=== PATIENT | male | born 1960 | race Caucasian/White ===

== ENCOUNTER 2016-11-12 17:21 | Emergency (ER) | payer OTHER ==
[2016-11-12 17:41] VITALS: BP 129/79; PULSE 75; TEMP 98; BMI 25.8
--- NOTE | 2016-11-12 18:47 | PDOC ---
History of Present Illness - General Chief Complaint: Eye Problem Stated Complaint: FOREIGN OBJECT Time Seen by Provider: 11/12/16 17:43 History Source: Patient, Family - History of Present Illness Timing/Duration: 1-3 hours Severity: mild Past History - Past Medical History Allergies/Adverse Reactions: Allergies Allergy/AdvReac Type Severity Reaction Status Date / Time Penicillins Allergy Verified 11/12/16 17:38 Home Medications: Ambulatory Orders Naproxen [Naprosyn] 375 mg PO BID PRN #14 tablet 01/10/12 No Home Medications 0 dose .ROUTE UTDICT 01/10/12 Erythromycin 0.5% Eye Ointment [Erythromycin 0.5% Eye Ointment -] 1 applic OD DAILY #1 tube 11/12/16 Other medical history: NONE - Psycho/Social/Smoking Cessation Hx Anxiety: No Suicidal Ideation: No Smoking Status: No Smoking History: Never smoked Have you smoked in the past 12 months: No Number of Cigarettes Smoked Daily: 0 Information on smoking cessation initiated: No Hx Alcohol Use: No Drug/Substance Use Hx: No Substance Use Type: None Review of Systems - Review of Systems HEENTM: Yes: Eye Pain. No: Blurred Vision, Tearing *Physical Exam - Vital Signs Last Vital Signs Temp Pulse Resp BP Pulse Ox 98.0 F 75 15 129/79 100 11/12/16 17:39 11/12/16 17:39 11/12/16 17:39 11/12/16 17:39 11/12/16 17:39 - Physical Exam General Appearance: Yes: Appropriately Dressed. No: Apparent Distress HEENT: positive: Normal Voice, Other (R conjunctival erythema, tearing or gross fb on lid eversion). negative: Scleral Icterus (R), Scleral Icterus (L) Neck: positive: Supple Respiratory/Chest: negative: Respiratory Distress Integumentary: positive: Dry, Warm Neurologic: positive: Fully Oriented, Alert, Normal Mood/Affect Medical Decision Making - Medical Decision Making 11/12/16 18:44 56-year-old male, no significant history, here with foreign body sensation to right eye. Patient states while changing a light fixture on ceiling at home today, fixture fell shattering glass and suspects piece of glass might have gone into eye. States he had bilateral eye discomfort and has irrigated her eyes since. States left eye feels better, but continues to have some discomfort to right eye. Denies conjunctival erythema, tearing, photophobia or visual changes. See exam Corneal abrasion s/p injury ?small uptake to R eye No gross fb on lid eversion Tetanus UTD -dc w/ abx ointment and optho f/u 11/12/16 18:49 *DC/Admit/Observation/Transfer Diagnosis at time of Disposition: Corneal abrasion Qualifiers: Encounter type: initial encounter Laterality: right Qualified Code(s): S05.01XA - Injury of conjunctiva and corneal abrasion without foreign body, right eye, initial encounter - Discharge Dispostion Disposition: HOME Condition at time of disposition: Good - Prescriptions Prescriptions: Erythromycin 0.5% Eye Ointment [Erythromycin 0.5% Eye Ointment -] 1 applic OD DAILY #1 tube - Referrals Referrals: Cyn Roblero MD [Primary Care Provider] - Jacky Martinez [Staff Physician] - - Patient Instructions Printed Discharge Instructions: Corneal Abrasion Additional Instructions: Your exam did not reveal any obvious foreign body in your eye at this time. However, there is possible small scrape in your eye. Use ointment as directed. Follow up with ophthalmology this week
== END 2016-11-12 18:57 | disposition home or self-care (01) ==
LOC: JERFT 17:21
DX: S05.01XA Injury of conjunctiva and corneal abrasion without foreign body, right eye, initial encounter (principal); W20.1XXA Struck by object due to collapse of building, initial encounter; Y93.89 Activity, other specified; Y92.009 Unspecified place in unspecified non-institutional (private) residence as the place of occurrence of the external cause
CPT/HCPCS: 99281-25

== ENCOUNTER 2020-11-28 08:28 | Observation (INO) | payer OTHER ==
[2020-11-28] MEDS ORDERED: ASPIRIN 81 MG CHEWABLE TABLETS PO ONE (08:54)
[2020-11-28 09:08] LABS: BASO % 1.2 % (0-2.0); EOS % 1.7 % (0-4.5); HEMATOCRIT 45.7 % (35.4-49); HEMOGLOBIN 15.6 GM/dL (11.7-16.9); LYMPH % 29.2 % (8-40); MCH 33.4 pg (25.7-33.7); MCHC 34.2 g/dl (32.0-35.9); MEAN CELL VOLUME 97.7 fl (80-96); MONO % 6.9 % (3.8-10.2); PLATELET COUNT 190 10^3/uL (134-434); RBC 4.68 M/mm3 (4.00-5.60); RDW 12.9 % (11.9-15.9); WHITE BLOOD COUNT 6.7 K/mm3 (4.0-10.0)
[2020-11-28] MEDS ORDERED: ASPIRIN 81 MG CHEWABLE TABLETS ONE (09:09)
[2020-11-28 09:14] LABS: INR 1.03 (0.83-1.09); PROTHROMBIN TIME (PATIENT) 12.5 SEC (9.7-13.0)
[2020-11-28 09:31] LABS: CHLORIDE 107 mmol/L (98-107); SODIUM 139 mmol/L (136-145)
[2020-11-28 09:42] LABS: ALBUMIN 4.1 g/dl (3.4-5.0); ALK PHOS 87 U/L (45-117); ANION GAP 6 MMOL/L (8-16); BILIRUBIN,TOTAL 0.6 mg/dL (0.2-1); BLOOD UREA NITROGEN 14.1 mg/dL (7-18); CALCIUM 8.8 mg/dL (8.5-10.1); CO2 26 mmol/L (21-32); CREATININE 0.8 mg/dL (0.55-1.3); GLUCOSE,RANDOM 96 mg/dL (74-106); SGOT/AST 13 U/L (15-37); SGPT/ALT 25 U/L (13-61); TOT PROT 6.7 g/dl (6.4-8.2)
[2020-11-28 23:00] VITALS: BMI 25.7
[2020-11-29 07:30] LABS: HEMATOCRIT 45.5 % (35.4-49); HEMOGLOBIN 15.4 GM/dL (11.7-16.9); MCH 33.2 pg (25.7-33.7); MCHC 33.8 g/dl (32.0-35.9); MEAN CELL VOLUME 98.3 fl (80-96); MEAN PLT VOLUME 9.5 fl (7.5-11.1); PLATELET COUNT 175 10^3/uL (134-434); RBC 4.63 M/mm3 (4.00-5.60); RDW 12.8 % (11.9-15.9); WHITE BLOOD COUNT 6.2 K/mm3 (4.0-10.0)
[2020-11-29 07:39] LABS: CHLORIDE 109 mmol/L (98-107); SODIUM 141 mmol/L (136-145)
[2020-11-29 07:46] LABS: BLOOD UREA NITROGEN 16.4 mg/dL (7-18); MAGNESIUM 2.2 mg/dL (1.8-2.4)
[2020-11-29 07:47] LABS: CALCIUM 8.3 mg/dL (8.5-10.1)
[2020-11-29 07:48] LABS: ALBUMIN 3.6 g/dl (3.4-5.0); ANION GAP 4 MMOL/L (8-16); CHOLESTEROL 182 mg/dL (50-200); CO2 28 mmol/L (21-32); CREATININE 0.8 mg/dL (0.55-1.3); HDL CHOLESTEROL 41 mg/dL (40-60); PHOSPHOROUS 2.5 mg/dL (2.5-4.9)
[2020-11-29 07:49] LABS: BILIRUBIN,TOTAL 0.9 mg/dL (0.2-1); SGPT/ALT 22 U/L (13-61)
[2020-11-29 07:50] LABS: SGOT/AST 13 U/L (15-37)
[2020-11-29 07:51] LABS: LDL CHOLESTEROL (ONLY SJRH) 108 mg/dL (5-100); TRIGLYCERIDES 101 mg/dL (0-150)
[2020-11-29 07:55] LABS: ALK PHOS 82 U/L (45-117)
[2020-11-29 08:46] LABS: GLUCOSE,RANDOM 90 mg/dL (74-106)
[2020-11-29] MEDS ORDERED: ENOXAPARIN NA (PORCINE) 40 MG/0.4 ML DISP.SYRIN SQ SCH (10:00)
[2020-11-29 14:25] LABS: ERYTHROCYTE SEDIMENTATION RATE 2 mm/hr (0-20)
[2020-11-29 18:54] VITALS: BP 136/77; PULSE 51; TEMP 97.9
== END 2020-11-29 19:20 | disposition home or self-care (01) ==
LOC: JER 08:28 → JERBED 12:57 → J4W 20:22
PROVIDERS: ATTEND Internal Medicine
PROC: 3E013GC Introduction of Other Therapeutic Substance into Subcutaneous Tissue, Percutaneous Approach (ICD-10-PCS; principal; 2020-11-28)
DX: R07.89 Other chest pain (principal); R00.1 Bradycardia, unspecified; I31.3 Pericardial effusion (noninflammatory); E78.00 Pure hypercholesterolemia, unspecified
CPT/HCPCS: 36415; 71045-TC-FY; 80053; 80061; 82550; 83036; 83721; 83735; 84100; 84443; 84484; 85025; 85027; 85610; 85651; 85730; 86140; 93005; 93010; 93306-TC; 96372; 99285-25; C9803; G0378; U0003; U0005